=== PATIENT | male | born 1985 | race Caucasian/White ===

== ENCOUNTER 2024-04-10 13:38 | Emergency (ER) | payer MEDICAID ==
[~2024-04-10] VITALS: Ht 175.3 cm; Wt 113.4 kg
[2024-04-10 14:22] VITALS: BP 128/69; TEMP 98.6; O2SAT 99
== END 2024-04-10 17:40 | disposition left against medical advice (07) ==
LOC: ER 13:40
DX: F41.9 Anxiety disorder, unspecified (principal); Z53.21 Procedure and treatment not carried out due to patient leaving prior to being seen by health care provider